=== PATIENT | male | born 1995 | race Caucasian/White ===

== ENCOUNTER 2019-12-14 18:51 | Emergency (ER) | payer OTHER, SELFPAY ==
[2019-12-14 19:13] VITALS: BP 151/83; PULSE 83; RESP 14; TEMP 37.1; O2SAT 99
--- NOTE | 2019-12-14 19:54 | ED.PSYCH ---
HPI - Psych General Chief Complaint: Psychiatric Symptoms Stated Complaint: headache, light headed,voices in head Related Data Home Medications Medication Instructions Recorded Confirmed No Home Medications 12/14/19 12/14/19 Allergies Allergy/AdvReac Type Severity Reaction Status Date / Time No Known Allergies Allergy Verified 12/14/19 19:13 Course Vital Signs Vital signs: Vital Signs Temperature 37.1 C 12/14/19 19:13 Pulse Rate 83 12/14/19 19:13 Respiratory Rate 14 12/14/19 19:13 Blood Pressure 151/83 H 12/14/19 19:13 Pulse Oximetry 99 12/14/19 19:13 Temperature 37.1 C 12/14/19 19:13 Pulse Rate 83 12/14/19 19:13 Respiratory Rate 14 12/14/19 19:13 Blood Pressure 151/83 H 12/14/19 19:13 Pulse Oximetry 99 12/14/19 19:13 Discharge Plan Discharge Prescriptions: No Action No Home Medications RF: 0
--- NOTE | 2019-12-14 19:55 | ED.PSYCH ---
HPI - Psych General Chief Complaint: Psychiatric Symptoms Stated Complaint: headache, light headed,voices in head Source: patient Mode of arrival: ambulatory Limitations: no limitations History of Present Illness HPI Narrative: Woo is a 24 year old who came to the E.D. because he thinks he needs a head CT. He is worried about a brain problem. Recently he has had episodes where he feels anxious and feels his heart beating. They last for a short time. He states he had an episode while he was talking with me. He's concerned he might faint. HE also has been having trouble at times getting a satisfactory breath, even with deep inspiration. Also recently he sees himself vomiting. He worries a lot about his symptoms and isn't sure if worrying creates brings them on or makes them worse. For well over a year he has had problems staying focused, hearing his uncle () and dad talking to him, has conversations going on in his head, has angry outbursts and agitation. These have all been problems for over a year. The voices and conversations are about what's going on . They're not negative and do not tell him to do things. He sees people in very vague terms hard to describe. Several times a week he gets a headache on the right side of his head which lasts several hours, moderate intensity. He had one today which has resolved. Over a year ago he felt down and depressed, cut his left arm multiple times with the intention of hurting himself. He was never seen for the wounds or the episode. He denies thoughts of hurting himself or others except when he's upset and feels angry or impulsive. He states he would never act on those thoughts. He has never made a plan. He has seen Jovanny Honeycutt 4 -5 times over the past 2 years and doesn't feel like his concerns have been addressed. He was hospitalized in [place] about 3 years ago for abnormal thinking. He doesn't think it was a psych. hospital. He has given Effexor and Fluoxetine which he stopped last year because they made things worse. He saw a counselor in [place] 1 month ago. An appointment was set up for a phone consult on 12/17/2019 in [place] which he is planning on. . 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 Related Data Home Medications Medication Instructions Recorded Confirmed No Home Medications 12/14/19 12/14/19 Allergies Allergy/AdvReac Type Severity Reaction Status Date / Time No Known Allergies Allergy Verified 12/14/19 19:13 Review of Systems Constitutional: Constitutional: Reports no additional constitutional complaints and Reports body ache(s) Cardiovascular: Cardiovascular: Denies chest pain Respiratory: Respiratory: Denies cough and Denies dyspnea Gastrointestinal: Gastrointestinal: Denies nausea and Denies vomiting Neurologic: Reports Normal hearing present (doesn't hear well out of the right ear. Tinnitus sometimes in both ears. ), Denies abnormal gait, Denies vertigo, Denies lack of coordination and Denies focal weakness Psychiatric: Psychiatric: Reports no additional psychiatric complaints PMFSH Past Medical History Medical History (Updated 12/14/19 @ 21:38 by Paco Mayo MD) ADD (attention deficit disorder) Anxiety Depression Hypertension Exam Const: General: cooperative, healthy appearing, comfortable, alert and well groomed; No anxious Nutritional Appearance: average body habitus and well nourished Orientation/consciousness: patient oriented x3 Limitations: no limitations HENMT: Head: no scalp tenderness Chest: Chest palpation & inspection: normal inspection of the chest Resp: Effort & Inspection: normal respiratory effort and other (full clear breath sounds) Cardio: Palpation: normal PMI Rate: regular rate Rhythm: regular rhythm Heart sounds: no murmurs Skin: Full body images: 1. multiple superficial, transverse slash scars right forearm. 2.
[2019-12-14 20:06] VITALS: BP 157/73; PULSE 80; RESP 14; O2SAT 99
--- NOTE | 2019-12-14 20:33 | PC.NURSE ---
[facility] HOME VISITS NURSE HUE CONTACTED IN REGARDS TO PATIENT SYMPTOMS, SUICIDAL/HOMICIDAL IDEATIONS, AND HALLUCINATIONS. [facility] STATES THEY WILL DO A FOLLOW UP TO CHECK ON PATIENT SAFETY.
== END 2019-12-14 20:07 | disposition home or self-care (01) ==
LOC: CHSED 18:54
PROVIDERS: Emergency Provider Family Medicine; PCP Physician Assistant
DX: R44.0 Auditory hallucinations (principal); G44.209 Tension-type headache, unspecified, not intractable
CPT/HCPCS: 99282; 99284

== ENCOUNTER 2020-02-04 16:38 | Emergency (ER) | payer OTHER, SELFPAY ==
--- NOTE | ~2020-02-04 | CT_ITS ---
EXAMINATION: CT brain wo con INDICATION: Hallucinations COMPARISON: None TECHNIQUE: Standard unenhanced head CT. The dose-length product (DLP) was 605.33 mGy-cm. The mA was a djusted according to patient size. Iterative reconstruction technique was employed. FINDINGS: There is no intracranial hemorrhage, acute infarction, or abnormal mass lesion. The ventric les are normal. There is no abnormal mass effect or midline shift. The clifford-white matter differentiat ion is normal. The basal cisterns are patent. The orbits are normal. The paranasal sinuses, mastoids and calvarium are normal. IMPRESSION: 1. No acute intracranial abnormality. Reviewed, dictated and finalized at location A.
[2020-02-04 16:56] VITALS: BP 151/85; PULSE 72; RESP 18; TEMP 36.7; O2SAT 99
--- NOTE | 2020-02-04 17:01 | ED.PSYCH ---
HPI - Psych General Chief Complaint: Psychiatric Symptoms Stated Complaint: psych Time Seen by Provider: 02/04/20 16:39 Source: patient Mode of arrival: ambulatory Limitations: no limitations History of Present Illness HPI Narrative: 24-year-old man comes in today complaining of aural hallucinations, specifically voices that resemble his uncles who are talking to him. He states he also hears voices of people who is recently talked to including the examiner. Patient states that he has woken up to warnings and row now with severe nausea but no vomiting. He has had 2 phone interviews with toni hyman. Patient states that he has suicidal thoughts but imagine no plan or method. He states that at times he is extremely frustrated and he feels like killing someone but does not have the intention to do so. He denies history of seizures, head injury, prior hospitalization, or recent drug or alcohol use. His grandmother states he is currently taking a lot supplements in order to bulk up. MD complaint: suicidal ideation and other (hearing voices) Onset (ago): week(s) Duration: intermittent History of same: Yes Relieving factors: none Exacerbating factors: none Context: new medication(s) ( Two days ago he was started on propranolol and aripiprazole.) Associated psychiatric symptoms: suicidal ideation and auditory hallucinations Associated symptoms: nausea If self harm: admits thoughts of self harm Related Data Home Medications Medication Instructions Recorded Confirmed aripiprazole 5 mg PO HS 02/04/20 02/04/20 oxcarbazepine 300 mg PO DAILY 02/04/20 02/04/20 propranolol 10 mg PO BID 02/04/20 02/04/20 Allergies Allergy/AdvReac Type Severity Reaction Status Date / Time No Known Allergies Allergy Verified 12/14/19 19:13 Review of Systems Constitutional: Constitutional: Reports chills and Reports fever(s) Eyes: Eyes: Denies change in vision and Denies photophobia ENT: Denies dysphagia, Denies nasal congestion and Denies sore throat Cardiovascular: Cardiovascular: Denies chest pain and Denies radiating jaw, neck or arm pain Respiratory: Respiratory: Denies cough, Denies dyspnea and Denies wheezing Gastrointestinal: Gastrointestinal: Denies abdominal pain, Denies diarrhea, Denies nausea and Denies vomiting Genitourinary: Genitourinary: Denies dysuria and Denies urinary frequency Musculoskeletal: Musculoskeletal: Denies back pain, Denies arthralgias and Denies joint swelling Integumentary/Breasts: Skin/Breast: Denies pruritus, Denies erythema and Denies rash Neurologic: Denies vertigo, Denies dizziness and Denies syncope Psychiatric: Psychiatric: Reports as per HPI, Reports anxiety, Reports depression and Reports suicidal ideation Endocrine: Endocrine: Denies excessive sweating and Denies polyuria Hematologic/Lymphatic: Hematologic/Lymphatic: Denies easy bleeding and Denies easy bruising Allergic/Immunologic: Allergic/Immunologic: Denies tongue swelling and Denies wheezing PMFSH Past Medical History Medical History ADD (attention deficit disorder) Anxiety Depression Hypertension Social History Social History Smoking status: Never smoker Alcohol intake: former Alcohol use details: Not since October or November Substance use: former Substance use type: methamphetamine Living arrangements: with family Additional living arrangements comments: Lives with grandparents Exam Const: General: healthy appearing and alert Nutritional Appearance: well nourished Orientation/consciousness: patient oriented x3 Other: Mild acute distress HENMT: Ears: external ears normal, TM's normal bilaterally and EAC's normal General nose exam: Normal nares present Mouth: Yes Normal oral and palatal mucosa present Throat: uvula midline Eyes: Conjunctivae: conjunctivae normal Pupils: Equal, round and lior
--- NOTE | 2020-02-04 17:16 | PC.NURSE ---
Pts requesting someone to let his grandma in the parking lot know that he is going to be a while and that she can go home. Grandmother reports to soiled linen distributor that pt has been taking a lot of supplements to try and get muscular. Edp aware.
[2020-02-04 17:22] LABS: Basophils Absolute Auto 0.04 K/mm3 (0.00-0.10); Basophils Percent Auto 0.4 % (0.0-1.0); Eosinophils Absolute Auto 0.09 K/mm3 (0.02-0.50); Hematocrit 47.4 % (40.0-54.0); Hemoglobin 16.9 g/dL (14.0-18.0); Immature Granulocyte Absolute 0.05 K/mm3 (0.00-0.00); Immature Granulocyte Percent A 0.5 % (0.0-0.0); Lymphocytes Absolute Auto 2.15 K/mm3 (1.10-4.50); Lymphocytes Percent Auto 23.1 % (18.0-42.0); Mean Corpuscular HGB Conc 35.7 g/dL (32.0-36.0); Mean Corpuscular Hemoglobin 31.1 pg (27.0-31.0); Mean Corpuscular Volume 87.3 fL (78.0-102.0); Mean Platelet Volume 9.7 fl (8.7-11.0); Monocytes Absolute Auto 0.71 K/mm3 (0.10-0.90); Monocytes Percent Auto 7.6 % (2.0-11.0); Neutrophils Absolute Auto 6.3 K/mm3 (1.7-7.2); Neutrophils Percent Auto 67.4 % (50.0-70.0); Platelet Count Result 307 K/mm3 (150-420); Red Blood Count 5.43 M/mm3 (4.70-6.10); Red Cell Distribution Width 11.8 % (11.6-14.4); White Blood Count 9.3 K/mm3 (4.8-10.8)
[2020-02-04 17:22] LABS: Add Urine Microscopic? NO; Appearance Urine Clear (Clear); Bilirubin Urine Negative (Negative); Blood Urine Negative (Negative); Color Urine Yellow (Yellow); Glucose Urine UA Negative (Negative); Ketones Urine Negative (Negative); Leukocyte Esterase Ur Negative LEU/UL (Negative); Nitrate Urine Negative (Negative); Protein Urine Negative (Negative); Specific Grav Ur 1.025 (1.010-1.020); Urobilinogen Urine 0.2 mg/dL (0.2-1.0)
[2020-02-04 17:37] LABS: Amphetamine Screen Urine Negative (Negative); Barbiturate Screen Urine Negative (Negative); Benzodiazepines Screen Urine Negative (Negative); Cannabinoid Screen Urine Negative (Negative); Cocaine Screen Urine Negative (Negative); Methadone Screen Urine Negative (Negative); Opiate Screen Urine Negative (Negative); Phencyclidine Screen Urine Negative (Negative)
[2020-02-04 17:46] LABS: Alanine Aminotransferase 59 U/L (16-63); Albumin Level 3.9 g/dL (3.4-5.0); Alkaline Phosphatase 72 U/L (46-116); Aspartate Amino Transferase 28 U/L (15-37); Bilirubin,Total 0.4 mg/dL (0.00-1.00); Blood Urea Nitrogen 11 mg/dL (7-18); Calcium 9.1 mg/dL (8.5-10.1); Carbon Dioxide 31 mmol/L (21-32); Chloride 102 mmol/L (98-108); Estimated CRCL calculation 110 ml/min; Estimated Glomerular Filt Rate > 60; Glucose 94 mg/dL (70-99); Osmolality Calculated 287 mOsm/kg (285-295); Salicylate 0.9 mg/dL (2.8-20.0); Sodium 139 mmol/L (136-145); Thyroid Stimulating Hormone 1.33 uIU/mL (0.36-3.74); Total Protein 7.4 g/dL (6.4-8.2)
[2020-02-04 17:50] LABS: Acetaminophen 0 ug/mL (10-30); Ethanol < 3 mg/dL (0-6)
[2020-02-04 18:27] VITALS: BP 153/89; PULSE 72; RESP 16; O2SAT 99
--- NOTE | 2020-02-04 20:46 | PC.NURSE ---
Kieran from [facility] attempting to find psych bed for pt. [facility] Chart fax[facility] to [facility].
[2020-02-04 21:33] VITALS: BP 133/78
[2020-02-04 23:30] VITALS: BP 138/90; PULSE 89; RESP 16; TEMP 36.8; O2SAT 98
--- NOTE | 2020-02-04 23:30 | PC.NURSE ---
To room 206 accopmpanied by staff member from ER via w/c. VS taken. Pt alert & oriented, cooperative. Calm @ present. No s suicidal, homicidal ideation expressed @ this time. Room in view of nursing station.
--- NOTE | 2020-02-04 23:53 | PC.NURSE ---
[address] 2nd floor nursing, [facility] [place], received report on pt. to take to floor Rm 206 for ED Hold until bed placement is found. Pt. cooperative c care and awaiting bed at inpt. facility. [address] [place] called and facesheet on pt. faxed to intake per [facility] [place]
--- NOTE | 2020-02-05 00:28 | PC.NURSE ---
Sleeping, resp even. No signs of discomfort noted.
--- NOTE | 2020-02-05 01:34 | PC.NURSE ---
Sleeping, resp even. No signs of anxiety or discomfort noted.
--- NOTE | 2020-02-05 02:16 | PC.NURSE ---
Pt ambulated to BR, voided. Gait steady. Remains calm & cooperative No voiced suicidal or homicidal thoughts. VS 97.6 16 76 139/86 L arm 97% on room air.
--- NOTE | 2020-02-05 03:11 | PC.NURSE ---
Sleeping, resp even. No signs of anxiety or discomfort noted. No voiced ideas of suicide or homicide.
--- NOTE | 2020-02-05 04:04 | PC.NURSE ---
Sleeping, resp even. No signs of anxiety noted.
--- NOTE | 2020-02-05 04:50 | PC.NURSE ---
Sleeping, resp even. Noo signs of discomfort noted. VBoided X1 so far. Oral intake 300ml water.
--- NOTE | 2020-02-05 05:17 | PC.NURSE ---
VS 97.2 16 88 139/83 R arm 97% on room air. Pt remains alert, cooperative & calm. No voiced ideas of harming self or others. No statements of hearing voices since to room from ER.
--- NOTE | 2020-02-05 06:20 | PC.NURSE ---
Sleeping, resp even. No signs of anxiety noted.
--- NOTE | 2020-02-05 08:15 | PC.NURSE ---
Patient sitting up on side of bed, eating breakfast
[2020-02-05 09:00] VITALS: BP 120/77; PULSE 103; RESP 20; TEMP 36.1; O2SAT 98
--- NOTE | 2020-02-05 09:30 | PC.NURSE ---
Patient in bed resting comfortably
[2020-02-05] MEDS: OXcarbazepine 300 MG TABLET PO (10:19)
[2020-02-05 10:20] VITALS: PULSE 103
[2020-02-05] MEDS: PROPRANOLOL HCL 20 MG TABLET 10 MG PO (10:20)
--- NOTE | 2020-02-05 10:25 | PC.NURSE ---
Patient in bed, gets himself up to bathroom ad shyanne
--- NOTE | 2020-02-05 11:20 | PC.NURSE ---
Patient in bed watching television
--- NOTE | 2020-02-05 12:10 | PC.NURSE ---
Patient sitting up on side of bed eating lunch.
--- NOTE | 2020-02-05 13:30 | PC.NURSE ---
Patient in bed resting, watching television
--- NOTE | 2020-02-05 14:30 | PC.NURSE ---
Patient in bed watching television, up ad shyanne
--- NOTE | 2020-02-05 15:30 | PC.NURSE ---
Report given to Adriana at [facility]. Facility will be receiving patient.
[2020-02-05 15:44] VITALS: BP 150/84; PULSE 93; RESP 18; TEMP 36.8; O2SAT 97
--- NOTE | 2020-02-05 15:45 | PC.NURSE ---
Patient accepted to [facility] in [place], [place]. MD and Patient notified. Patient states consent to be transferred to facility. Report given by Alix FUNG to Adriana FUNG.
--- NOTE | 2020-02-05 16:15 | PC.NURSE ---
[facility] contacted about transfer for patient to [facility]. Both services are unavaliable at this time. This nurse contacted [facility] service about transferring patient. Waiting for call back from [facility]. aware.
--- NOTE | 2020-02-05 16:24 | PC.NURSE ---
returned call about transfer, unable to provide service at this time.
--- NOTE | 2020-02-05 16:35 | PC.NURSE ---
[facility] and [facility] contacted about transferring patient. Both unable to provide service at this time.
--- NOTE | 2020-02-05 17:02 | PC.NURSE ---
[facility] contacted, Unable to provide service at this time.
--- NOTE | 2020-02-05 17:51 | ED.GENADULT ---
HPI - General Adult General Chief complaint: Psychiatric Symptoms Stated complaint: psych Time Seen by Provider: 02/04/20 16:39 Source: patient Mode of arrival: ambulatory Limitations: no limitations History of Present Illness HPI narrative: I resumed care for Woo at 0700 this morning. He was admitted for SI/HI and auditory hallucinations. Please see previous note for details. He continues to report SI/HI/agitation and auditory hallucinations. They are not telling him to do anything but he hears conversations. Related Data Home Medications Medication Instructions Recorded Confirmed aripiprazole 5 mg PO HS 02/04/20 02/04/20 oxcarbazepine 300 mg PO DAILY 02/04/20 02/04/20 propranolol 10 mg PO BID 02/04/20 02/04/20 Allergies Allergy/AdvReac Type Severity Reaction Status Date / Time No Known Allergies Allergy Verified 12/14/19 19:13 Review of Systems Review of Systems: All systems reviewed & are unremarkable except as noted in HPI and below Constitutional: Constitutional: Reports no additional constitutional complaints [facility] Past Medical History Medical History ADD (attention deficit disorder) Anxiety Depression Hypertension Social History Social History Smoking status: Never smoker Alcohol intake: former Alcohol use details: Not since October or November Substance use: former Substance use type: methamphetamine Living arrangements: with family Additional living arrangements comments: Lives with grandparents Exam Const: General: no acute distress and alert Orientation/consciousness: patient oriented x3 HENMT: Head: normal to inspection Eyes: Pupils: Equal, round and reactive pupils present Neck: Neck: normal visual inspection Resp: Effort & Inspection: normal respiratory effort Auscultation: clear to auscultation bilaterally Cardio: Rate: regular rate Rhythm: regular rhythm GI: Inspection: non-distended GI Palp: Yes Soft to palpation and No Tenderness to palpation present (GI) Skin: General skin exam: normal color Rashes: no rashes Neuro: General: patient oriented x3 and moves all extremities Extrem: General: normal to inspection Psych: Thought content: Yes Suicidality present, Yes Homicidality present and Yes Hallucination(s) present Course Course Emergency Course: Continuing to be on 1 to 1. Awaiting placement. Having placment issues as we cannot arrange transportation. Vital Signs Vital signs: Vital Signs Temperature 36.7 C 02/04/20 16:56 Pulse Rate 72 02/04/20 16:56 Respiratory Rate 18 02/04/20 16:56 Blood Pressure 151/85 H 02/04/20 16:56 Pulse Oximetry 99 02/04/20 16:56 Temperature 36.8 C 02/05/20 15:44 Pulse Rate 93 02/05/20 15:44 Respiratory Rate 18 02/05/20 15:44 Blood Pressure 150/84 H 02/05/20 15:44 Pulse Oximetry 97 02/05/20 15:44 Medical Decision Making Vital Signs Vital Signs: Vital Signs Temperature 36.7 C 02/04/20 16:56 Pulse Rate 72 02/04/20 16:56 Respiratory Rate 18 02/04/20 16:56 Blood Pressure 151/85 H 02/04/20 16:56 Pulse Oximetry 99 02/04/20 16:56 Temperature 36.8 C 02/05/20 15:44 Pulse Rate 93 02/05/20 15:44 Respiratory Rate 18 02/05/20 15:44 Blood Pressure 150/84 H 02/05/20 15:44 Pulse Oximetry 97 02/05/20 15:44 Lab Data Result diagrams: 02/04/20 17:17 02/04/20 17:17 Labs: Lab Results 02/04/20 02/04/20 02/04/20 Range/Units 17:10 17:10 17:17 WBC 9.3 (4.8-10.8) K/mm3 RBC 5.43 (4.70-6.10) M/mm3 Hgb 16.9 (14.0-18.0) g/dL Hct 47.4 (40.0-54.0) % MCV 87.3 (78.0-102.0) fL MCH 31.1 H (27.0-31.0) pg MCHC 35.7 (32.0-36.0) g/dL RDW 11.8 (11.6-14.4) % Plt Count 307 (150-420) K/mm3 MPV 9.7 (8.7-11.0) fl Immature Gran % (Auto) 0.5 H (0.0-0.0) % Neut % (Auto) 67
--- NOTE | 2020-02-05 18:07 | PC.NURSE ---
Spoke with [facility] ambulance to tranfer patient tomorrow. Unable to provide service. John Tabares in Intake reports that they will still take patient tomorrow or friday but updates will be needed each day and They will have to reeval each day for intake.
--- NOTE | 2020-02-05 18:36 | PC.NURSE ---
Patient in bed watching television, up ad shyanne
[2020-02-05 20:14] VITALS: BP 160/75; PULSE 90; RESP 18; TEMP 36.9; O2SAT 98
--- NOTE | 2020-02-05 20:14 | PC.NURSE ---
Patient resting in bed. Behavior is appropriate. patient denies needing any assistance. vital signs obtained.
[2020-02-05] MEDS: ARIPIPRAZOLE 5 MG TABLET PO (20:17)
--- NOTE | 2020-02-05 22:00 | PC.NURSE ---
Patient appears to be sleeping at this time. No signs of distress are observed.
--- NOTE | 2020-02-05 23:14 | PC.NURSE ---
Patient resting in bed, behavior is appropriate. Patient provided with a lunch meat sandwich per request.
--- NOTE | 2020-02-06 01:08 | PC.NURSE ---
Patient in bed, he appears to be sleeping. No signs of distress are observed.
--- NOTE | 2020-02-06 03:45 | PC.NURSE ---
Patient sleeping in bed. No distress observed.
--- NOTE | 2020-02-06 05:16 | PC.NURSE ---
Patient appears to be sleeping. No signs of distress are observed.
[2020-02-06 06:10] VITALS: BP 139/82; PULSE 108; RESP 16; TEMP 36.6; O2SAT 97
[2020-02-06 08:14] VITALS: BP 158/94; PULSE 78; RESP 18; TEMP 36.6; O2SAT 97
--- NOTE | 2020-02-06 08:48 | PC.NURSE ---
0830 update given to [facility] and asked if they found a ride and if we have no ride. why not see if any beds opened today that are closer. they are to look into this. [facility] said no. denies any sucidal plans. sitting up on bed and eats breaskfat.
[2020-02-06 09:34] VITALS: PULSE 86
[2020-02-06] MEDS: PROPRANOLOL HCL 20 MG TABLET PO (09:34)
[2020-02-06 09:44] VITALS: PULSE 86
[2020-02-06] MEDS: PROPRANOLOL HCL 20 MG TABLET 10 MG PO ×2 (09:44→22:32)
[2020-02-06] MEDS: OXcarbazepine 300 MG TABLET PO (09:45)
--- NOTE | 2020-02-06 10:47 | PC.NURSE ---
0930 has empty 2 oz. bottle of mouth wash on tray. ate all of breakfast. paces back and forth in room. jumps in and out of room. wants to go now to other facility. explained we are working on ride or a closer facility but no luck at this time. mental health calls and claims 2 of the closer facilities have 4 and 6 people wait ahead of him. erp aware of all of this rafa candelaria 1000 erp here and patient up and down in room. denies the need for anything to help him calm down. up and down in room. watches tv. wet wipes given to clean up. new scrubs given also. gadiel pain rafa candelaria
--- NOTE | 2020-02-06 11:56 | PC.NURSE ---
1140 washes self up with wet wipes. now up in halls with nurse. dianna vargas. is now making his bed. rafa candelaria
--- NOTE | 2020-02-06 14:25 | PC.NURSE ---
sitting on side of bed. talks with staff. arturo gray rn
[2020-02-06 15:21] VITALS: BP 144/78; PULSE 88; RESP 20; TEMP 36.6; O2SAT 98
--- NOTE | 2020-02-06 20:37 | PC.NURSE ---
Patient awake. Alert and oriented x3. not voicing any thoughts of harm to self or others
--- NOTE | 2020-02-06 20:54 | PC.NURSE ---
Spoke with [facility] and [facility] regarding transportation She was able to provide 2 of their local ambulance numbers. [facility] does not service this area. [facility] said they could not transport at this time and to call back Friday AM at 0800
[2020-02-06] MEDS: ARIPIPRAZOLE 10 MG TABLET 5 MG PO (22:34)
--- NOTE | 2020-02-07 00:41 | PC.NURSE ---
Patient in bed. Appears to be resting. Able to make needs known. No signs of distress
--- NOTE | 2020-02-07 02:37 | PC.NURSE ---
Patient is quiet. Appears to be resting at this time. Pleasent and cooperative
[2020-02-07 07:26] VITALS: BP 141/98; PULSE 79; RESP 16; TEMP 36.9; O2SAT 94
--- NOTE | 2020-02-07 08:30 | PC.NURSE ---
Spoke with [facility]. Bed continue to be held for patient. Notified of issues finding solution for transportation. Notified of possibility of [facility] being able to transport patient.
[2020-02-07 08:37] VITALS: PULSE 75
[2020-02-07] MEDS: PROPRANOLOL HCL 20 MG TABLET 10 MG PO (08:37)
[2020-02-07] MEDS: OXcarbazepine 300 MG TABLET PO (08:38)
--- NOTE | 2020-02-07 09:45 | PC.NURSE ---
[facility] agreed to transport patient to [facility]. Ambulance to be here at 10:30-1100.
[2020-02-07 11:10] VITALS: BP 141/98; PULSE 79; RESP 16; TEMP 37; O2SAT 94
--- NOTE | 2020-02-07 11:10 | PC.NURSE ---
[facility] here to transport patient to [facility]. Patient transfered from bed to stretcher with no assist. Report and tranfer packet provided to EMS. Patient left via stretcher accompanied by EMS.All belongings sent with patient. No questions at discharge.
== END 2020-02-07 11:10 ==
PROVIDERS: Emergency Medicine; Emergency Provider Family Medicine; PCP Physician Assistant
DX: R45.851 Suicidal ideations (principal); F41.9 Anxiety disorder, unspecified; R44.0 Auditory hallucinations; I10 Essential (primary) hypertension
CPT/HCPCS: 36415; 70450; 80053; 80307; 81003; 84443; 85025; 99283; 99285; A9270